=== PATIENT | male | born 1980 | race Caucasian/White ===

== ENCOUNTER 2021-10-01 07:32 | Emergency (ER) | payer SELFPAY ==
--- NOTE | 2021-10-03 14:47 | DCPLANNER ---
internal security manager had message to speak with patient about getting established with a primary care physician. internal security manager called phone number [phone], phone number was disconnected.
== END 2021-10-01 07:45 | disposition left against medical advice (07) ==
LOC: ER 07:40
PROVIDERS: Emergency Provider Family Medicine
DX: Z53.21 Procedure and treatment not carried out due to patient leaving prior to being seen by health care provider (principal)

== ENCOUNTER 2021-10-01 08:18 | Emergency (ER) | payer SELFPAY ==
[2021-10-01 08:24] VITALS: BP 117/81; PULSE 79; RESP 14; TEMP 36.6; O2SAT 98; BMI 30.4
--- NOTE | 2021-10-01 08:44 | ED_ITS ---
HPI - URI/Sore Throat General: Chief Complaint: Upper Respiratory Infection Stated Complaint: Sinus Congestion Time Seen by Provider: 10/01/21 08:27 History of Present Illness: Patient is a 41-year-old male who comes to the ED with sore throat. Symptoms have been going on now for close to 5 months but have gotten worse over the last 2 days. Endorses hoarseness in his voice and some mild nasal and sinus congestion. He also has an abscessed tooth. Denies any other symptoms such as fever, cough, abdominal pain, shortness of breath, chest pain, nausea/vomiting, bladder or bowel symptoms. Associated symptoms: Reports nasal congestion; Deny abdominal pain, chills, chest pain, diarrhea, fever(s), headache(s), nausea or vomiting Review of Systems Const: Denies: fever(s), chills or fatigue Eyes: Denies: change in vision or eye discomfort ENMT: Reports: throat pain, hoarseness, dental pain and nasal congestion; Denies: odynophagia or nasal discharge Card: Denies: chest pain, palpitations, edema, swelling of feet/ankles, dyspnea on exertion or orthopnea Resp: Denies: dyspnea, productive cough or non-productive cough GI: Denies: abdominal pain, nausea, vomiting, diarrhea, constipation or hematochezia : Denies: flank pain, difficulty urinating, dysuria or hematuria Musc: Denies: neck pain, back pain or extremity swelling Skin/Breast: Denies: rash or new lesions Neuro: Denies: headache(s), numbness in extremities or weakness in extremities [facility] ED PFSH: Medical History No pertinent family history Surgical History No pertinent past surgical history Physical Exam Const: COMMON NORMALS: no acute distress, patient oriented x3 and alert GENERAL APPEARANCE: cooperative and comfortable HENMT: COMMON NORMALS: normocephalic HEAD & SCALP: normocephalic MOUTH: Normal oral and palatal mucosa present TEETH & GINGIVA: Yes poor dentition THROAT: uvula midline and posterior oropharynx abnormal erythema Neck/C-Spine: COMMON NORMALS: supple GENERAL: Yes normal visual inspection Resp: COMMON NORMALS: normal respiratory effort, No retractions, No use of accessory muscles and clear to auscultation bilaterally AUSCULTATION: clear to auscultation bilaterally Cardio: COMMON NORMALS: regular rate, regular rhythm, S1 normal heart sound present, S2 normal heart sound present, No gallops present (Cardio), No clicks present (Cardio), No murmurs present (Cardio) and Peripheral pulses 2+ throughout RATE: regular rate RHYTHM: regular rhythm HEART SOUNDS: S1 normal heart sound present and S2 normal heart sound present PERIPHERAL PULSES: Peripheral pulses 2+ throughout GI: COMMON NORMALS: Normal to inspection, nondistended, normoactive bowel sounds present, Soft to palpation, non-tender and no masses PALPATION: Yes Soft to palpation : COMMON NORMALS: Yes no CVA tenderness BLADDER/KIDNEY EXAM: Yes no CVA tenderness Back/Pelvis: COMMON NORMALS: no CVA tenderness Extremity: COMMON NORMALS: normal to inspection Neuro: COMMON NORMALS: patient oriented x3 and moves all extremities SENSORIUM/ORIENTATION: Yes alert Skin: GENERAL SKIN EXAM: dry skin Course Vital Signs: Vital signs: Vital Signs Temperature 97.9 F 10/01/21 08:24 Pulse Rate 79 10/01/21 08:24 Respiratory Rate 14 10/01/21 08:24 Blood Pressure 117/81 10/01/21 08:24 Pulse Oximetry 98 10/01/21 08:24 MDM - URI/Sore Throat Medical Decision Making Patient is a 41-year-old male comes to the ED with sore throat and dental pain. Vitals are stable. Patient appears nontoxic and in no acute distress or pain. He has poor dentition and some erythema of the posterior oropharynx. Rest of exam is benign. Strep was negative. Patient was diagnosed with pharyngitis and dental pain. he was discharged home with a prescription for amoxicillin and told to follow-up with his PCP within the next week and to contact a dentist as well to address his dental pain. Return ED precautions given. Patient understood agree with plan. Lab Data Laboratory Results Group A Strep Rapid Negative (Negative) 10/01/21 09:38 Discharge Plan Discharge Patient Disposition: Home Clinical Impression: Pain, dental Pharyngitis Qualifiers: Pharyngitis/tonsillitis etiology: other specified organisms Qualified Code(s): J02.8 - Acute pharyngitis due to other specified organisms Condition: Stable Prescriptions: New amoxicillin 500 mg capsule 500 mg PO BID 10 Days Qty: 20 0RF Discharge Orders: Discharge ED (Routine); Ordered 10/01/21 Ordered By: Henry Dorsey Discharge Diet: Regular Discharge Activity: Increase activity as tolerated Patient Instructions: Pharyngitis (ED) Activity Restrictions/Additional Instructions: Follow-up with medical provider as directed. Take medications as prescribed. Return to the ER or your medical provider if condition worsens. Please read and understand discharge instructions. Thank you for choosing [facility] for your healthcare needs today. Please realize this is an emergency room and that we are providing you with a medical screening exam and this may not be complete and all inclusive of all the testing and or work up that you may need to determine your ailment or severity of your illness. It is very important that you follow up as instructed or that you return to the Emergency Department should you have concerns or if your condition changes or worsens in any way. Coding Level of Care Code ED Community Placement Worker for Nicolasa Gupta Exam Comprehensive
[2021-10-01 10:04] LABS: Rapid Strep A Test Negative (Negative)
== END 2021-10-01 10:39 | disposition home or self-care (01) ==
PROVIDERS: Emergency Provider Physician Assistant
DX: J02.8 Acute pharyngitis due to other specified organisms (principal); K08.89 Other specified disorders of teeth and supporting structures
CPT/HCPCS: 87081; 87880; 99283

== ENCOUNTER 2021-10-02 12:08 | Emergency (ER) | payer SELFPAY ==
[2021-10-02 12:41] VITALS: BP 127/74; PULSE 77; RESP 16; O2SAT 98; BMI 30.4
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
[2021-10-02] MEDS: ketorolac 60 mg/2 mL INJ IM (13:02)
[2021-10-02 13:07] VITALS: BP 129/82
[2021-10-02 13:16] VITALS: BP 129/82; PULSE 83; O2SAT 97
== END 2021-10-02 13:17 | disposition home or self-care (01) ==
PROVIDERS: Emergency Provider Physician Assistant
DX: K08.89 Other specified disorders of teeth and supporting structures (principal); M54.2 Cervicalgia; G89.29 Other chronic pain
CPT/HCPCS: 96372; 99283; J1885

== ENCOUNTER 2021-10-31 21:42 | Emergency (ER) | payer OTHER, SELFPAY ==
[2021-10-31 22:14] VITALS: BP 123/85; PULSE 91; RESP 16; TEMP 36.8; O2SAT 97; BMI 25.5
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
[2021-10-31] MEDS: azithromycin 250 mg Tablet 1000 MG PO (23:40)
[2021-11-01] MEDS: ketorolac 60 mg/2 mL INJ IM (00:28)
[2021-11-01] MEDS: orphenadrine 30 mg/mL Inj 2 mL 60 MG IM (00:28)
[2021-11-01 01:17] LABS: Add Urine Microscopic? NO; Charge for UA Resulting for Rev
[2021-11-01 01:20] LABS: Bilirubin Urine 1+ (Negative); Blood Urine Neg (Negative); Glucose Urine UA Norm (Normal); Ketones Urine 1+ (Negative); Leukocyte Esterase Urine Negative (Negative); Nitrate Urine Negative (Negative); Protein Urine Neg (Negative); Urine Appearance Clear (CLEAR); Urine Color Yellow (Yellow); Urobilinogen Urine Norm (Negative); pH Urine 5 (5-7)
--- NOTE | 2021-11-11 09:45 | DCPLANNER ---
retail operations manager had message to speak with patient about getting established with a primary care physician. retail operations manager called phone number [phone], this number has been disconnected. retail operations manager unable to speak with patient or leave a voicemail at this time.
== END 2021-11-01 02:25 | disposition home or self-care (01) ==
PROVIDERS: Emergency Provider Physician Assistant
DX: Z20.2 Contact with and (suspected) exposure to infections with a predominantly sexual mode of transmission (principal)
CPT/HCPCS: 81003; 87491; 87591; 96372; 99284; J0696; J1885; J2360; Q0144

== ENCOUNTER 2021-11-02 11:43 | Emergency (ER) | payer OTHER, SELFPAY ==
[2021-11-02 12:21] VITALS: BP 127/80; PULSE 71; RESP 16; TEMP 36.6; O2SAT 98; BMI 27.3
--- NOTE | 2021-11-02 13:32 | ED_ITS ---
HPI - Skin/Abscess/Foreign Bdy General: Chief complaint: Skin/Abscess/Foreign Body Stated complaint: facial infection Time Seen by Provider: 11/02/21 12:48 Source: patient Mode of arrival: ambulatory Limitations: no limitations History of Present Illness: Patient is a 41-year-old male who presents to ED today with complaint of skin rash over the past several weeks. He states the rash is mainly to the posterior aspect of his neck although he has noticed lesions to his face and arms as well. He states lesions are not pruritic. They do seem to be slightly painful. He denies a history of staph. He states he has been taking PenVK for a dental infection but they do not seem to be doing anything for the rash. Patient denies systemic symptoms. MD complaint: rash and lesion Onset (ago): week(s) Tetanus up to date: yes Associated symptoms: Deny chills or fever(s) Review of Systems Const: Denies: fever(s), chills, body aches, fatigue or malaise Eyes: Denies: change in vision Card: Denies: chest pain Resp: Denies: dyspnea GI: Denies: abdominal pain : Denies: flank pain Musc: Reports: back pain (chronic); Denies: neck pain, extremity pain or joint pain Skin/Breast: Reports: rash Neuro: Denies: headache(s), numbness in extremities, weakness in extremities or sensory changes PFS ED PFSH: Medical History No pertinent family history Surgical History No pertinent past surgical history Physical Exam Const: COMMON NORMALS: no acute distress, average body habitus, patient oriented x3, no limitations, alert and well nourished GENERAL APPEARANCE: cooperative ORIENTATION/CONSCIOUSNESS: Yes awake, Yes oriented to person, Yes oriented to place and Yes oriented to time HENMT: COMMON NORMALS: normocephalic and atraumatic HEAD & SCALP: normal to inspection, normocephalic and atraumatic Neck/C-Spine: COMMON NORMALS: full ROM, no lymphadenopathy and no meningeal signs Resp: COMMON NORMALS: normal respiratory effort and clear to auscultation bilaterally AUSCULTATION: clear to auscultation bilaterally Cardio: COMMON NORMALS: regular rate and regular rhythm RATE: regular rate RHYTHM: regular rhythm Back/Pelvis: LUMBAR SPINE/LOWER BACK: No ROM limited, Yes lumbar spinal tenderness, Yes paraspinal muscle tenderness and No paraspinal muscle spasm Extremity: GENERAL: Yes normal exam except as noted Neuro: KAREN COMA SCALE: document GCS findings Karen coma scale eye opening: Spontaneous [place] coma scale verbal response: Orientated Karen coma scale motor response: Obey commands [place] coma scale total score: 15 COMMON NORMALS: patient oriented x3, moves all extremities, no focal motor deficits and no sensory deficits noted SENSORIUM/ORIENTATION: Yes alert, Yes oriented to person, Yes oriented to place and Yes oriented to time MENINGEAL SIGNS: Yes no meningeal signs Skin: NARRATIVE SKIN EXAM: pt has scattered skin lesions to posterior neck, face, earlobe, and a few to arms; lesions to neck look like at one point had vesicular formations present but these have unroofed and now there is honey crusted discharge present; no erythema, no abscess; he has a few scattered folliculitis appearing lesions Course Vital Signs: Vital signs: Vital Signs Temperature 97.8 F 11/02/21 12:21 Pulse Rate 71 11/02/21 12:21 Respiratory Rate 16 11/02/21 12:21 Blood Pressure 127/80 11/02/21 12:21 Pulse Oximetry 98 11/02/21 12:21 MDM - Skin/Abscess/Foreign Bdy Medicial Decision Making Rash clinically appears like an impetigo. He will be placed on Keflex and Mupirocin ointment. Recommend follow-up with primary care if rash does not seem to be improving. Patient at the end of my visit was asking for pain medications in regards to his chronic lower back pain that has been present over the past 6 to 7 months. Told patient we could write him for some anti-inflammatories which he stated he was not interested in. Explained to patient that from an ED setting we would not prescribe pain medications for chronic pain. Patient seems very dissatisfied with this and becomes irritated and confrontational. I exited the room and told him we would treat his more acute complaint of his rash at this time. Discharge Plan Discharge Patient Disposition: Home Clinical Impression: Impetigo Condition: Stable Prescriptions: New cephalexin 500 mg capsule 500 mg PO Q6H 10 Days Qty: 40 0RF Continued mupirocin 2 % ointment 1 applic topical BID PRN (Reason: sores on neck and face) Qty: 22 0RF Discharge Orders: Discharge ED (Routine); Ordered 11/02/21 Ordered By: Neha Diane Coding Level of Care Code ED Cleater for Nicolasa Gupta
[2021-11-02 14:23] VITALS: BP 127/80; PULSE 71; RESP 16; O2SAT 98
== END 2021-11-02 14:20 | disposition home or self-care (01) ==
PROVIDERS: Emergency Provider Physician Assistant
DX: L01.00 Impetigo, unspecified (principal); G89.29 Other chronic pain; M54.50 Low back pain, unspecified
CPT/HCPCS: 99283